=== PATIENT | male | born 1955 | race Caucasian/White ===

== ENCOUNTER 2016-04-05 05:41 | Outpatient (CLI) | payer BC ==
[~2016-04-05] VITALS: Ht 172.7 cm; Wt 79.4 kg
[~2016-04-05 05:41] MED LIST: PANT40TA3 PO
[2016-04-05] MEDS ORDERED: PANT40TA3 PO (14:20)
== END 2016-04-05 14:21 ==
LOC: PREOP 05:41
PROVIDERS: ATTEND Internal Medicine
DX: Z01.818 Encounter for other preprocedural examination (principal); K22.70 Barrett's esophagus without dysplasia

== ENCOUNTER 2016-04-07 07:25 | Day surgery (SDC) | payer BC ==
[~2016-04-07] VITALS: Ht 172.7 cm; Wt 79.4 kg
--- OUTSIDE RECORDS SUMMARY | 2016-04-07 07:29 | XMS REPORT | Continuity of Care Document ---
Author Author [facility] Organization [facility] Address Unknown Phone Unavailable Care Team Providers Care Administrative Aide Name Role Phone SAEID SORIANO MD PCP Insurance Providers Payer Name Policy Number Subscriber Name Relationship [facility] [id number] Lee Gibson 20 Self / Same As Patient Advance Directives Directive Response Recorded Date/Time Advance Directives No 04/05/16 2:17pm Health Care Power of Inside Steward/Stewardess No 04/05/16 2:17pm Organ Donor Yes 04/05/16 2:17pm Resuscitation Status Full Code 04/05/16 2:17pm Problems No problem information available. Medications Current Home Medications Medication Dose Units Route Directions Days/Qty Instructions Start Date Pantoprazole Sodium 40 Mg 40 Mg Oral Daily 04/05/16 Past Home Medications Medication Directions Ordered Status Pantoprazole Sodium 40 Mg Tablet.dr, 40 Mg Oral Daily 02/26/15 Discontinued Social History Social History Problem Response Recorded Date/Time Alcohol Use Occasionally Uses 04/05/2016 2:17pm Recreational Drug Use No 04/05/2016 2:17pm Recent Foreign Travel No 04/05/2016 2:17pm Recent Infectious Disease Exposure No 04/05/2016 2:17pm Smoking Status Never a Smoker 04/05/2016 2:17pm Do you dip or chew tobacco? No 04/30/2015 7:15am Recent Hopitalizations No 04/05/2016 2:17pm Query Response Start Date Stop Date Smoking Status Never a Smoker Hospital Discharge Instructions No hospital discharge instructions. Plan of Care Discharge Date 04/05/16 2:21pm Prescriptions See Medication Section Functional Status No functional status results. Allergies, Adverse Reactions, Alerts No known allergies. Immunizations No immunization records. Vital Signs Acute Vital Signs Vital Response Date/Time Height (Feet) 5 feet 04/05/2016 2:16pm Height (Inches) 8.00 inches 04/05/2016 2:16pm Height (Calculated Centimeters) 172.864864 cm 04/05/2016 2:16pm Weight (Pounds) 175 pounds 04/05/2016 2:16pm Weight (Ounces) 0.0 oz 04/05/2016 2:16pm Weight (Calculated Grams) 64165.67 gm 04/05/2016 2:16pm Weight (Calculated Kilograms) 79.865578 kilograms 04/05/2016 2:16pm Calculated BMI 26.6 04/05/2016 2:16pm Results No known relevant diagnostic tests, laboratory data and/or discharge summary. Procedures No known history of procedures. Encounters Encounter Location Arrival/Admit Date Discharge/Depart Date Attending Provider Registered Clinic [facility] 04/05/16 5:41am KIRSTEN JALLOH MD
--- OUTSIDE RECORDS SUMMARY | 2016-04-07 07:29 | XMS REPORT | Continuity of Care Document ---
Author Author [facility] Organization [facility] Address Unknown Phone Unavailable Care Team Providers Care Ldr Rn Name Role Phone SAEID SORIANO MD PCP Insurance Providers Payer Name Policy Number Subscriber Name Relationship [facility] [id number] Lee Gibson 20 Self / Same As Patient Advance Directives Directive Response Recorded Date/Time Advance Directives No 04/05/16 2:17pm Health Care Power of Education Program Manager No 04/05/16 2:17pm Organ Donor Yes 04/05/16 [...] 8.00 inches 04/05/2016 2:16pm Height (Calculated Centimeters) 172.549119 cm 04/05/2016 2:16pm Weight (Pounds) 175 pounds 04/05/2016 2:16pm Weight (Ounces) 0.0 oz 04/05/2016 2:16pm Weight (Calculated Grams) 91446.67 gm 04/05/2016 2:16pm Weight (Calculated Kilograms) 79.602846 kilograms 04/05/2016 2:16pm Calculated BMI 26.6 04/05/2016 2:16pm Results No known relevant diagnostic tests, laboratory data and/or discharge summary. Procedures No known history of procedures. Encounters Encounter Location Arrival/Admit Date Discharge/Depart Date Attending Provider Registered Clinic [facility] 04/05/16 5:41am KIRSTEN JALLOH MD
[2016-04-07] MEDS ORDERED: 1/2 NS IV SOLUTION 1,000 ML IV STA (07:34)
[2016-04-07] MEDS ORDERED: 1/2 NS IV SOLUTION 1,000 ML IV ONE (07:38)
[2016-04-07] MEDS ORDERED: FLUMAZENIL (ROMAZICON) 0.1 MG/ML 5 ML VIAL INJ PRN (07:45)
[2016-04-07] MEDS ORDERED: NALOXONE 0.4 MG/ML 1 ML (NARCAN) VIAL IVP PRN (07:45)
[2016-04-07 07:49] VITALS: BP 150/90
--- NOTE | 2016-04-07 07:56 | HISTORY AND PHYSICAL ---
DICTATING PHYSICIAN: Dr. Martinez DATE OF ADMISSION: 04/07/2016 Mr. Hernandez is a 61-year-old white male who presented to my office on 03/27 for yearly wellness evaluation. He has known short segment Rodriguez's and last underwent EGD evaluation for dysphasia one year ago. He had LA grade 4 erosive esophagitis with short segment Rodriguez's. No dysplasia was noted. He did have a stricture formation. He has been compliant with PPI therapy and has had no dysphasia or odynophagia. He has noted no melena and has felt well. His weight is up several pounds. Bowel habits have been normal. He accomplished screening colonoscopy in February 2015. He had one small adenoma removed from the hepatic flexure, without evidence for dysplasia and a 5 year screening interval from that time was recommended. PAST MEDICAL HISTORY: Noncontributory, he has no significant health problems. MEDICATIONS: Pantoprazole is on no other prescription medication. SURGICAL HISTORY: He has no significant past surgical history. FAMILY HISTORY: Pertinent for one aunt and one cousin with a history of colon cancer. 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 He has not aware of any family history for esophageal cancer, gastric or pancreatic cancer. PHYSICAL EXAMINATION: Reveals a pleasant articulate white male, in no acute distress. His blood pressure in was 140/82, heart rate was 72 and regular. HEENT EXAMINATION: Unremarkable. Sclera were anicteric. Ear canals clear with normal TMs. Oral cavity reveals a Mallampati class II pharyngeal configuration. NECK: Reveals no JVD, adenopathy or bruits. CHEST: Clear. CV: Reveals a regular rate and rhythm without murmur, S3 or S4. ABDOMEN: Soft, supple without masses, organomegaly or tenderness. EXTREMITIES: Reveal no cyanosis, clubbing, or edema. SKIN: Skin evaluation reveals no suspicious nevi. RECTAL EXAMINATION: Was deferred to the time of the EGD. A chemistry panel, lipid panel and PSA were obtained. PSA was low at 0.57, chemistry studies and lipid parameters were unremarkable, nonfasting sugar was unremarkable at 113. ASSESSMENT: Normal well male examination. Did discuss the importance of regular physical activity. Advised moderation of red meat and processed meats with increased dietary fiber and plants. We will be calling to remind him for yearly wellness evaluation and a flu shot was administered today. He was set-up for EGD for surveillance for Rodriguez's and erosive esophagitis. Continue to recommend lifelong PPI therapy. EGD was scheduled for 04/07/16 Job ID: [id number] Dictated Date: 03/27/2016 19:37:00 Heel Cementer Date: 03/28/2016 10:57:51/raji
--- NOTE | 2016-04-07 08:01 | Pre-Op Note & Conscious Sedat ---
Pre-Operative Progress Note H&P Reviewed The H&P was reviewed, patient examined and no changes noted. Date H&P Reviewed: Apr 07, 2016 Time H&P Reviewed: 08:01 Conscious Sedation Pre-Proced ASA Class: 2 Airway Mallampati Classification: (redding appropriate class) I. II. III, IV Lungs Heart ASA score ASA 1: a normal healthy patient ASA 2: a patient with a mild systemic disease (mid diabetes, controlled hypertension, obesity ASA 3: a patient with a severe systemic disease that limits activity (angina , COPD, prior Myocardial infarction) ASA 4: a patient with an incapacitating disease that is a constant threat to life (CHF, renal failure) ASA 5: a moribund patient not expected to survive 24 hrs. (ruptured aneurysm) ASA 6: a declared brain patient whose organs are being harvested. For emergent operations, add the letter E after the classification Grade 2 Sedation Plan: Analgesia, Amnesia, Plan communicated to team members, Discussed options with patient/fam, Discussed risks with patient/fam Note The patient is an appropriate candidate to undergo the planned procedure, sedation, and anesthesia. The patient immediately re-assessed prior to indication. KIRSTEN JALLOH MD Apr 07, 2016 08:01
[2016-04-07] MEDS: HURRICAINE EXT TUBE (BENZOCAINE) XX PRN ×2 (08:41→08:46)
[2016-04-07] MEDS ORDERED: HURRICAINE EXT TUBE (BENZOCAINE) ONE (08:45)
[2016-04-07] MEDS ORDERED: LIDOCAINE JELLY 2% (XYLOCAINE) 5 ML TUBE ONE (08:45)
[2016-04-07] MEDS ORDERED: fentaNYL INJECTION 100 MCG/2 ML AMP ONE (08:45)
[2016-04-07] MEDS ORDERED: MIDAZOLAM 2 MG/2 ML (VERSED) VIAL ONE ×3 (08:45→08:56)
[2016-04-07] MEDS: fentaNYL INJECTION 100 MCG/2 ML AMP IVP PRN ×2 (08:45→08:53)
[2016-04-07] MEDS: LIDOCAINE JELLY 2% (XYLOCAINE) 5 ML TUBE MM PRN ×2 (08:46→08:56)
[2016-04-07] MEDS: MIDAZOLAM 2 MG/2 ML (VERSED) VIAL IVP PRN ×3 (08:48→08:56)
[2016-04-07 09:35] VITALS: BP 116/78
[2016-04-07 10:00] VITALS: BP 136/96
[2016-04-07 10:30] VITALS: BP 136/96
--- NOTE | 2016-04-09 08:51 | PROCEDURE REPORT ---
PROCEDURE PHYSICIAN: KIRSTEN JALLOH DATE OF PROCEDURE: 04/07/2016 EGD SUMMARY: PRIMARY CARE PHYSICIAN: Dr. Jalloh INDICATION FOR THE PROCEDURE: This is a surveillance EGD due to history of Rodriguez's esophagus in addition to erosive esophagitis. PROCEDURE: The patient was placed in the left lateral decubitus position. The endoscope was inserted into the oral cavity and under direct visualization, the esophagus was intubated. The endoscope was passed down the esophagus, through the stomach, and into the second portion of the duodenum. A careful inspection was made as the endoscope was withdrawn. The patient tolerated the procedure well. FINDINGS: Proximal and midesophagus were unremarkable. The estimated GE junction was proximally placed at 35 cm from the incisal orifice secondary to a small to medium sized hiatal hernia, in addition to an estimated 3 cm of Rodriguez's esophagus. Five circumferential biopsies were obtained and submitted for histopathology. Currently there was only one shallow erosion involving only 10% of the circumference of the esophagus. There was no evidence to suggest malignancy under normal light as well as blue light filtering. Photographs were obtained. The cardia, fundus and antrum of the stomach were normal, as was the pylorus, the pyloric channel, the duodenal bulb, and second portion of the duodenum. No evidence for blood was noted in the upper GI tract. ASSESSMENT: The patient LA grade D esophagitis previously has been reduced to LA grade A with short segment Rodriguez's. Surveillance biopsies were obtained and submitted for histopathology. There is a small to moderate size hiatal hernia again noted. As long as there are no surprises on histopathology reports, the patient will hopefully remain at low risk and as long as this is the case, will likely advocate a 2 year screening interval, provided significant dysplasia is not identified. He has rare alcohol intake and is a lifelong nonsmoker. There is also no family history for esophageal cancer that he is aware of or any other GI tract malignancy. Job ID: [id number] Dictated Date: 04/07/2016 13:22:31 Physical Education Specialist Date: 04/09/2016 08:45:34 / negin MCCABE
== END 2016-04-07 10:30 | disposition home or self-care (01) ==
LOC: ENDO 07:25
PROVIDERS: ATTEND Internal Medicine
DX: K22.70 Barrett's esophagus without dysplasia (principal); K44.9 Diaphragmatic hernia without obstruction or gangrene
CPT/HCPCS: 88305

== ENCOUNTER 2019-08-05 05:36 | Outpatient (RCR) | payer BC ==
[~2019-08-05] VITALS: Ht 172 cm; Wt 86.3 kg
[~2019-08-05 05:36] MED LIST changes: +ROSU20TA32 PO
== END 2019-08-05 15:09 | disposition home or self-care (01) ==
LOC: PREOP 05:36
PROVIDERS: ATTEND Specialist
DX: Z01.818 Encounter for other preprocedural examination (principal); Z11.59 Encounter for screening for other viral diseases
CPT/HCPCS: 87635

== ENCOUNTER 2019-08-08 05:56 | Day surgery (SDC) | payer BC ==
[~2019-08-08] VITALS: Ht 172 cm; Wt 86.3 kg
[2019-08-08 06:12] VITALS: BP 162/90
[2019-08-08] MEDS ORDERED: MOXIFLOXACIN OPHTH SOLN 5 MG/ML 0.3 ML SYRINGE OP ONE (06:15)
[2019-08-08] MEDS ORDERED: TIMOLOL MALEATE 0.5% 5 ML (TIMOPTIC) BTL OU PRN (06:15)
[2019-08-08] MEDS ORDERED: POVIDONE (BETADINE) OPHTH SOLN 5% 30 ML OP ONE (06:15)
[2019-08-08] MEDS ORDERED: LIDOCAINE PF 1% 2 ML VIAL IR PRN (06:15)
[2019-08-08] MEDS ORDERED: TETRACAINE 0.5% OPHTH SOLN 4 ML BTL (SINGLE DOSE ONLY) OP ONE (06:30)
[2019-08-08] MEDS: CYCLOPENTOLATE 1% (CYCLOGYL) 2 ML DROPS OP SCH ×3 (06:33→06:47)
[2019-08-08] MEDS: PHENYLEPHRINE 10% OPHTH (NEO-SYN) 5 ML BTL OU SCH ×3 (06:34→06:47)
[2019-08-08] MEDS ORDERED: MIDAZOLAM 2 MG/2 ML (VERSED) VIAL ONE (06:44)
--- NOTE | 2019-08-08 06:55 | Ophthalmologist Pre-Op Note ---
Pre-Operative Progress Note H&P Reviewed The H&P was reviewed, patient examined and no changes noted. Date H&P Reviewed: Aug 08, 2019 Time H&P Reviewed: 06:55 Pre-Op Dx Cataract, Right Eye HALLE REGALADO MD Aug 08, 2019 06:55
--- NOTE | 2019-08-08 07:23 | Ophthalmology Operative Report ---
Cataract removal/placement IOL PREOPERATIVE DIAGNOSIS: Cataract Right Eye POSTOPERATIVE DIAGNOSIS: Cataract Right Eye PROCEDURE: Cataract removal and placement of posterior chamber implant, right eye SURGEON: Jose Regalado ANESTHESIA: Topical with sedation COMPLICATIONS: None ESTIMATED BLOOD LOSS: Minimal DESCRIPTION OF PROCEDURE: After proper informed consent was obtained, the patient, a 64 male, was taken to the Operating Room and the right eye was anesthetized with tetracaine. The right eye was then prepped and draped in the usual manner. A wire lid speculum was placed. A paracentesis was made at the left hand position. Preservative free lidocaine was injected into the anterior chamber followed by viscoelastic. A clear corneal incision was made in the temporal position. A capsulorrhexis was preformed and the central nuclear and cortical material were removed. The posterior capsule was polished and Phani [id number] 15.5 IOL was placed into the capsular bag. The residual viscoelastic was aspirated and balanced saline solution was injected into the anterior chamber. Moxifloxacin was injected into the anterior chamber. The wound was checked and found to be water tight. The patient tolerated the procedure well without complications. JOSE REGALADO MD Aug 08, 2019 07:23
[2019-08-08] MEDS ORDERED: acetaZOLAMIDE ER 500 MG CAP (DIAMOX SEQUELS) PO ONE (07:30)
[2019-08-08 07:35] VITALS: BP 133/94
== END 2019-08-08 07:35 | disposition home or self-care (01) ==
LOC: SDC 05:56
PROVIDERS: ATTEND Specialist
DX: H25.11 Age-related nuclear cataract, right eye (principal); K22.70 Barrett's esophagus without dysplasia; Z85.828 Personal history of other malignant neoplasm of skin; Z79.899 Other long term (current) drug therapy
CPT/HCPCS: 66984; V2632

== ENCOUNTER 2019-08-12 05:29 | Outpatient (CLI) | payer BC | END 2019-08-12 15:40 | disposition home or self-care (01) | LOC: PREOP 05:29 | PROVIDERS: ATTEND Specialist | DX: Z01.818 Encounter for other preprocedural examination (principal); Z11.59 Encounter for screening for other viral diseases | CPT/HCPCS: 87635 ==

== ENCOUNTER 2019-08-15 06:00 | Day surgery (SDC) | payer BC ==
--- NOTE | 2019-08-08 11:35 | Anesthesia-General Post-Op ---
MAC Patient Condition Mental Status/LOC: Same as Preop Cardiovascular: Satisfactory Nausea/Vomiting: Absent Respiratory: Satisfactory Pain: Controlled Complications: Absent Post Op Complications Complications None Follow Up Care/Instructions Patient Instructions None needed. Anesthesiology Discharge Order Discharge Order Patient is doing well, no complaints, stable vital signs, no apparent adverse anesthesia problems. No complications reported per nursing. LEXY MEDELLIN DELIVERY MOTORCYCLE DRIVER Aug 08, 2019 11:35
[~2019-08-15] VITALS: Ht 177.8 cm; Wt 86.3 kg
[2019-08-15 06:05] VITALS: BP 172/95
[2019-08-15] MEDS ORDERED: POVIDONE (BETADINE) OPHTH SOLN 5% 30 ML OP ONE (06:15)
[2019-08-15] MEDS ORDERED: TIMOLOL MALEATE 0.5% 5 ML (TIMOPTIC) BTL OU PRN (06:15)
[2019-08-15] MEDS ORDERED: MOXIFLOXACIN OPHTH SOLN 5 MG/ML 0.3 ML SYRINGE OP ONE (06:15)
[2019-08-15] MEDS ORDERED: LIDOCAINE PF 1% 2 ML VIAL IR PRN (06:15)
[2019-08-15] MEDS: TETRACAINE 0.5% OPHTH SOLN 4 ML BTL (SINGLE DOSE ONLY) OU PRN ×4 (06:16→06:36)
--- OUTSIDE RECORDS SUMMARY | 2019-08-15 06:22 | XMS REPORT ---
Author Author [facility] locator [facility] Address [address] [address] Care Team Providers Care Mail Carrier Technician Name Role Phone SAEID SORIANO Unavailable KIRSTEN JALLOH Unavailable KIRSTEN JALLOH MD Unavailable Unavailable IZAIAH GUSMAN Unavailable Unavailable IZAIAH GUSMAN Unavailable Unavailable IZAIAH GUSMAN Unavailable Unavailable HALLE REGALADO MD Unavailable Unavailable Unavailable Unavailable Unavailable Unavailable Unavailable Unavailable Allergies Normalized Allergy Reported Date of Reaction(s) Care Provider Facility Allergy Type classification allergen Allergy Onset DA (5 Unclassified No Known Drug 04-30-2015 - no information KIRSTEN JALLOH , Not Available sources.) Allergies (49586) Medications No Information Problems Active Problems Problem Normalized Date Last Normalized Normalized Provider Fa cility Classification Problem(s) Recorded Problem Problem Sta tus Duration Esophageal Rodriguez's Chronic Active KIRSTEN JALLOH , Not Av ailable disorders (3 esophagus MD (55914) sources.) without dysplasia Past or Other Problems Problem Normalized Date Last Normalized Normalized Provider Fa cility Classification Problem(s) Recorded Problem Problem Sta tus Duration Abdominal Diaphragmatic Episodic Completed KIRSTEN JALLOH , Not Available hernia (3 hernia without MD (15110) sources.) obstruction or gangrene Procedures The data below is from unstructured sourcesNo known history of procedures.No known history of procedures.No known history of procedures. Immunizations The data below is from unstructured sourcesNo immunization records.No immunization records.No immunization records.No immunization records.No immunization records.No immunization records.No immunization records. Results The data below is from unstructured sourcesNo known relevant diagnostic tests, laboratory data and/or discharge summary.No known relevant diagnostic tests, laboratory data and/or discharge summary.No known relevant diagnostic tests, laboratory data and/or discharge summary.No known relevant diagnostic tests, laboratory data and/or discharge summary.No known rel evant diagnostic tests, laboratory data and/or discharge summary.No known releva nt diagnostic tests, laboratory data and/or discharge summary.No known relevant diagnostic tests, laboratory data and/or discharge summary. Vital Signs The data below is from unstructured sources Vital Response Date/Time Height (Feet) 5 feet 2:16pm Height (Inches) 8.00 inches 04/05/2016 2:16pm Height (Calculated Centimeters) 172. 048033 cm 04/05/2016 2:16pm Weight (Pounds) 175 pounds 04/05/2016 2:16pm Weight (Ounces) 0.0 oz 0 04/05/2016 2:16pm Weight (Calculated Grams) 03128.67 gm 04/05/2016 2:16pm Weight (Calculated Kilograms) 79.378 666 kilograms 04/05/2016 2:16pm Calculated BMI 26.6 03/22 2:16pm Vital Response Date/Time Temperature (Fahrenheit) 97.5 degree s F (97.6 - 99.5) 04/07/2016 10:30am Temperature (Calculated Celsius) 36. 02463 degrees C (36.4 - 37.5) 04/07/2016 10:30am Temperature Source Tympanic 04/07/2016 10:30am Pulse Rate (adult) 76 bpm (60 - 90) 04/07/2016 10:30am Respiratory Rate 20 bpm (12 - 24) 04/07/2016 10:30am O2 Sat by Pulse Oximetry 95 % (88 - 100) 04/07/2016 10:30am Blood Pressure 136/96 mm Hg 04/07/2016 10:30am Blood Pressure Mean 110 mm Hg 04/07/2016 7:49am Pain Numeric Pain Scale 0-No Pain 04/07/2016 10:30am Pain Intensity 0 2016 10:00am Height (Feet) 5 feet 7:51am Height (Inches) 8.00 inches 04/07/2016 7:51am Height (Calculated Centimeters) 172. 728936 cm 04/07/2016 7:51am Weight (Pounds) 175 pounds 04/07/2016 7:51am Weight (Ounces) 0.0 oz 0 04/07/2016 7:51am Weight (Calculated Grams) 36006.67 gm 04/07/2016 7:51am Weight (Calculated Kilograms) 79.378 666 kilograms 04/07/2016 7:51am Calculated BMI 26.6 03/22 7:51am Vital Response Date/Time Temperature (Fahrenheit) 97.0 degree s F (97.6 - 99.5) 04/30/2015 10:00am Temperature (Calculated Celsius) 36. 44769 degrees C (36.4 - 37.5) 04/30/2015 10:00am Temperature Source Tympanic 04/30/2015 10:00am Pulse Rate (adult) 74 bpm (60 - 90) 04/30/2015 10:00am Respiratory Rate 18 bpm (12 - 24) 04/30/2015 10:00am O2 Sat by Pulse Oximetry 98 % (88 - 100) 04/30/2015 10:00am Blood Pressure 146/98 mm Hg 04/30/2015 10:00am Pain Pain Intensity 0 2015 10:00am Height (Feet) 5 feet 12/2015 7:15am Height (Inches) 8.00 inches 04/30/2015 7:15am Height (Calculated Centimeters) 172. 558749 cm 04/30/2015 7:15am Weight (Pounds) 175 pounds 04/30/2015 7:15am Weight (Calculated Grams) 98791.666 gm 04/30/2015 7:15am Weight (Calculated Kilograms) 79.378 666 kilograms 04/30/2015 7:15am Calculated BMI 26.61 12/2015 7:15am Vital Response Date/Time Height (Feet) 5 feet 11/2015 9:53am Height (Inches) 8.00 inches 04/29/2015 9:53am Height (Calculated Centimeters) 172. 413690 cm 04/29/2015 9:53am Weight (Pounds) 175 pounds 04/29/2015 9:53am Weight (Calculated Grams) 80846.666 gm 04/29/2015 9:53am Weight (Calculated Kilograms) 79.378 666 kilograms 04/29/2015 9:53am Calculated BMI 26.61 11/2015 9:53am Vital Response Date/Time Height (Feet) 5 feet 11/2015 9:53am Height (Inches) 8.00 inches 04/29/2015 9:53am Height (Calculated Centimeters) 172. 647226 cm 04/29/2015 9:53am Weight (Pounds) 175 pounds 04/29/2015 9:53am Weight (Calculated Grams) 81458.666 gm 04/29/2015 9:53am Weight (Calculated Kilograms) 79.378 666 kilograms 04/29/2015 9:53am Calculated BMI 26.61 11/2015 9:53am Interventions No Information Plan of Treatment The data below is from unstructured sources Discharge Date 04/05/16 2:21pm Prescriptions See Medication Section Discharge Date 04/07/16 10:30am Instructions/Education Provided EGD- ESOPHAGOGASTRODUODENOSCOPY Prescriptions See Medication Section Discharge Date 04/30/15 10:00am Instructions/Education Provided EGD- ESOPHAGOGASTRODUODENOSCOPY Prescriptions See Medication Section Discharge Date 04/29/15 9:58am Prescriptions See Medication Section Discharge Date 04/29/15 9:58am Prescriptions See Medication Section Goals No Information Social History No Information Functional Status The data below is from unstructured sourcesNo functional status results.No functional status results.No functional status results.No functional status results.No functional status results.No functional status results.No functional status results. Mental Status No Information Encounters Encounter Normalized Encounter Encounter Diagnosis Care Provi michaela Organization Date Type 08-05-2019 Patient encounter no information HALLE REGALADO MD (no [facility] - procedure phone) [facility] 08-05-2019 (no phone) 08-01-2019 Patient encounter no information HALLE REGALADO MD (no [facility] procedure phone) [facility] (no phone) 04-07-2019 Patient encounter no information IZAIAH GUSMAN (no [facility] ne) [facility] - procedure of [facility] (no 04-07-2019 phone) 04-07-2016 Patient encounter no information no name no or ganization name - procedure 04-07-2016 Medical Equipment No Information Payers Normalized Payer Value [facility] no information Advance Directives Directive Response Recor ded Date/Time Advance Directives No 2:17pm Health Care Power of Motor Rebuilder No 04/05/16 2:17pm Organ Donor Yes 04/05/16 2:17pm Resuscitation Status Full Code 04/05/16 2:17pm Directive Response Recor ded Date/Time Advance Directives No 7:48am Health Care Power of Motor Rebuilder No 04/07/16 7:48am Organ Donor Yes 04/07/16 7:48am Resuscitation Status Full Code 04/07/16 7:48am Directive Response Recor ded Date/Time Advance Directives No 7:15am Health Care Power of Motor Rebuilder No 04/30/15 7:15am Organ Donor Yes 04/30/15 7:15am Resuscitation Status Full Code 04/30/15 7:15am Directive Response Recor ded Date/Time Advance Directives No 9:53am Health Care Power of Motor Rebuilder No 04/29/15 9:53am Organ Donor Yes 04/29/15 9:53am Resuscitation Status Full Code 04/29/15 9:53am Discharge Instructions No hospital discharge instructions.No hospital discharge instructions.No hospital discharge instructions.No hospital discharge instructions. Additional Source Comments This clinical document has been generated using [employer] software that has been certified by the Office of the National Coordinator for Health Information Technology (ONC 15.99.04.3023.Diam.31.00.0.462279) and the National Committee for Guest Relations Officer (NCQA, as an eMeasure certified technology). FOR RECORDS PERTAINING TO PATIENTS WHO ARE OR HAVE BEEN ENROLLED IN A CHEMICAL D EPENDENCY/SUBSTANCE ABUSE PROGRAM, SOME INFORMATION MAY BE OMITTED. This clinica l summary was aggregated from multiple sources. Caution should be exercised in using it in the provision of clinical care. This summary normalizes information from multiple sources, and as a consequence, information in this document may ma terially change the coding, format and clinical context of patient data. In chase tion, data may be omitted in some cases. CLINICAL DECISIONS SHOULD BE BASED ON T HE PRIMARY CLINICAL RECORDS. [employer] provides no warranty or guara ntee of the accuracy or completeness of information in this document.The followi ng information is based on time limited clinical information
--- OUTSIDE RECORDS SUMMARY | 2019-08-15 06:22 | XMS REPORT | Continuity of Care Document ---
Author Organization Unknown Address Unknown Phone Unavailable Allergies Active Description Code Type Severity Reaction Onset Reported/Identified Relationship to Patient Clinical Status Yes NO KNOWN DRUG ALLERGIES UNKNOWN UNKNOWN Yes No Known Drug Allergies [id number] Drug Allergy Unknown N/A 08/01/2019 Medications There is no data. Problems Date Dx Coded Attending Type Code Diagnosis Diagnosed By 01/19/1508 FABRICIO JANE, HALLE Mendez Ot Z01.818 ENCOUNTER FOR OTHER PREPROCEDURAL EXAMIN 01/19/1508 HALLE REGALADO MD Ot Z11.59 ENCOUNTER FOR SCREENING FOR OTHER VIRAL 02/26/2015 SHUBHAM JANE, KIRSTEN Isaacs Ot K22. 2 02/26/2015 SHUBHAM JANE, KIRSTEN Isaacs Ot K22. 70 02/26/2015 SHUBHAM JANE, KIRSTEN Isaacs Ot K29. 80 02/26/2015 SHUBHAM JANE, KIRSTEN Isaacs Ot K57. 30 02/26/2015 SHUBHAM JANE, KIRSTEN Isaacs Ot Z12. 11 02/26/2015 SHUBHAM JANE, KIRSTEN Isaacs Ot Z80. 0 04/30/2015 SHUBHAM JANE, KIRSTEN Isaacs Ot K22. 70 04/30/2015 SHUBHAM JANE, KIRSTEN Isaacs Ot K44. 9 05/03/2015 SHUBHAM JANE, KIRSTEN Isaacs Ot K22. 70 05/03/2015 SHUBHAM JANE, KIRSTEN Isaacs Ot K44. 9 05/05/2015 SHUBHAM JANE, KIRSTEN Isaacs Ot K22. 70 05/05/2015 SHUBHAM JANE, KIRSTEN Isaacs Ot Z01.818 05/06/2015 SHUBHAM JANE, KIRSTEN Isaacs Ot K22. 70 05/06/2015 SHUBHAM JANE, KIRSTEN Isaacs Ot K44. 9 04/07/2016 SHUBHAM JANE, KIRSTEN Isaacs Ot K22. 70 MENDEZ'S ESOPHAGUS WITHOUT DYSPLASIA 04/07/2016 SHUBHAM JANE, KIRSTEN Isaacs Ot K44. 9 DIAPHRAGMATIC HERNIA WITHOUT OBSTRUCTION 04/10/2016 SHUBHAM JANE, KIRSTEN Isaacs Ot K22. 70 MENDEZ'S ESOPHAGUS WITHOUT DYSPLASIA 04/10/2016 KIRSTEN JALLOH MD Ot K44. 9 DIAPHRAGMATIC HERNIA WITHOUT OBSTRUCTION 04/15/2016 KIRSTEN JALLOH MD Ot K22. 70 MENDEZ'S ESOPHAGUS WITHOUT DYSPLASIA 04/15/2016 KIRSTEN JALLOH MD Ot K44. 9 DIAPHRAGMATIC HERNIA WITHOUT OBSTRUCTION 08/08/2019 HALLE REGALADO MD Ot H25.11 AGE-RELATED NUCLEAR CATARACT, RIGHT EYE 08/08/2019 HALLE REGALADO MD Ot K22.70 MENDEZ'S ESOPHAGUS WITHOUT DYSPLASIA 08/08/2019 HALLE REGALADO MD Ot Z79.899 OTHER BINDERY CHIEF (CURRENT) DRUG THERAPY 08/08/2019 HALLE REGALADO MD Ot Z85.828 PERSONAL HISTORY OF OTHER MALIGNANT NEOP Procedures There is no data. Results Test Result Range Coronavirus SARS-CoV-2 SO 2018 0 07:55 Coronavirus Ab [Units/volume] in Serum Negative Negative Coronavirus SARS-CoV-2 SO 2018 0 08:04 Coronavirus Ab [Units/volume] in Serum Negative Negative Encounters ACCT No. Visit Date/Time Discharge Status Pt. Type Provider Facility Loc./Unit Complaint [id number] 04/07/2019 08:49:00 04/07/2019 23:59 :00 DIS Outpatient Roslyn Chaitanya [id number] 08/12/2019 05:29:00 020 15:40:00 DIS Outpatient HALLE REGALADO MD [facility] PREOP [id number] 08/08/2019 05:56:00 020 07:35:00 DIS Outpatient HALLE REGALADO MD [facility] SDC CATARACT RIGHT EYE [id number] 08/05/2019 05:36:00 020 15:09:00 DIS Outpatient HALLE REGALADO MD [facility] PREOP CATARACT RIGHT EYE [id number] 04/07/2016 07:25:00 017 10:30:00 DIS Outpatient KIRSTEN JALLOH MD [facility] ENDO FOLLOW UP BARRETTS [id number] 04/05/2016 05:41:00 017 14:21:00 DIS Outpatient KIRSTEN JALLOH MD [facility] PREOP FOLLOW UP [place]RETTS [id number] 04/30/2015 07:10:00 016 10:00:00 DIS Outpatient KIRSTEN JALLOH MD [facility] [id number] 04/29/2015 05:35:00 016 09:58:00 DIS Outpatient KIRSTEN JALLOH MD [facility] PREOP [id number] 02/26/2015 07:24:00 016 11:15:00 DIS Outpatient KIRSTEN JALLOH MD [facility] [id number] 02/24/2015 05:37:00 016 23:59:59 CLS Outpatient KIRSTEN JALLOH MD [facility] PREOP [id number] 08/15/2019 07:30:00 P HALLE Vizcarra MD [facility] CATARACT LEFT EYE
[2019-08-15] MEDS: PHENYLEPHRINE 10% OPHTH (NEO-SYN) 5 ML BTL OU SCH ×3 (06:25→06:36)
[2019-08-15] MEDS: CYCLOPENTOLATE 1% (CYCLOGYL) 2 ML DROPS OP SCH ×3 (06:25→06:36)
[2019-08-15] MEDS ORDERED: MIDAZOLAM 2 MG/2 ML (VERSED) VIAL ONE (06:40)
--- NOTE | 2019-08-15 06:59 | Ophthalmologist Pre-Op Note ---
Pre-Operative Progress Note H&P Reviewed The H&P was reviewed, patient examined and no changes noted. Date H&P Reviewed: Aug 15, 2019 Time H&P Reviewed: 06:48 Pre-Op Dx Cataract, Left Eye HALLE REGALADO MD Aug 15, 2019 06:59
--- NOTE | 2019-08-15 07:17 | Ophthalmology Operative Report ---
Cataract removal/placement IOL PREOPERATIVE DIAGNOSIS: Cataract Left Eye POSTOPERATIVE DIAGNOSIS: Cataract Left Eye PROCEDURE: Cataract removal and placement of posterior chamber implant, left eye SURGEON: Jose Regalado ANESTHESIA: Topical with sedation COMPLICATIONS: None ESTIMATED BLOOD LOSS: Minimal DESCRIPTION OF PROCEDURE: After proper informed consent was obtained, the patient, a 64 male, was taken to the Operating Room and the left eye was anesthetized with tetracaine. The left eye was then prepped and draped in the usual manner. A wire lid speculum was placed. A paracentesis was made at the left hand position. Preservative free lidocaine was injected into the anterior chamber followed by viscoelastic. A clear corneal incision was made in the temporal position. A capsulorrhexis was preformed and the central nuclear and cortical material were removed. The posterior capsule was polished and an Phani 16.5 [id number] was placed into the capsular bag. The residual viscoelastic was aspirated and balanced saline solution was injected into the anterior chamber. Moxifloxacin was injected into the anterior chamber. The wound was checked and found to be water tight. The patient tolerated the procedure well without complications. JOSE REGALADO MD Aug 15, 2019 07:17
[2019-08-15 07:20] VITALS: BP 149/62
[2019-08-15] MEDS ORDERED: acetaZOLAMIDE ER 500 MG CAP (DIAMOX SEQUELS) PO ONE (07:30)
--- NOTE | 2019-08-15 10:03 | Anesthesia-General Post-Op ---
MAC Patient Condition Mental Status/LOC: Same as Preop Cardiovascular: Satisfactory Nausea/Vomiting: Absent Respiratory: Satisfactory Pain: Controlled Complications: Absent Post Op Complications Complications None Follow Up Care/Instructions Patient Instructions None needed. Anesthesiology Discharge Order Discharge Order Patient is doing well, no complaints, stable vital signs, no apparent adverse anesthesia problems. No complications reported per nursing. MICHELLE VALDEZ CRNA Aug 15, 2019 10:03
== END 2019-08-15 07:20 | disposition home or self-care (01) ==
LOC: SDC 06:00
PROVIDERS: ATTEND Specialist
DX: H25.12 Age-related nuclear cataract, left eye (principal); K22.70 Barrett's esophagus without dysplasia; Z79.899 Other long term (current) drug therapy; Z85.828 Personal history of other malignant neoplasm of skin
CPT/HCPCS: 66984; V2632

== ENCOUNTER 2020-05-05 05:27 | Outpatient (RCR) | payer BC ==
[~2020-05-05] VITALS: Ht 172.7 cm; Wt 86.0 kg
[~2020-05-05 05:27] MED LIST changes: -PANT40TA3 PO; +PANT40TA52 PO
== END 2020-05-05 09:22 | disposition home or self-care (01) ==
LOC: PREOP 05:27
PROVIDERS: ATTEND Internal Medicine
DX: Z01.812 Encounter for preprocedural laboratory examination (principal); Z12.11 Encounter for screening for malignant neoplasm of colon; Z20.822 Contact with and (suspected) exposure to COVID-19
CPT/HCPCS: 87635

== ENCOUNTER 2020-05-07 09:01 | Day surgery (SDC) | payer BC ==
--- NOTE | 2020-04-29 17:02 | HISTORY AND PHYSICAL ---
DATE OF SERVICE: PANENDOSCOPY HISTORY AND PHYSICAL HISTORY: The patient is a 65-year-old white male seen for regular followup, who has a past history of Rodriguez's esophagus, short segment. He is due for surveillance EGD. He has his last EGD 3 years ago. He is little over 5 years out from his last colonoscopy and is deemed to be of higher than average risk as there is family history of colon cancer. He has a history of hyperlipidemia, on statin therapy and for reflux, takes Protonix 40 mg daily. Reports that he has not had any heartburn or dysphagia. He has noted no melena or bright red blood per rectum and has not feeling well. He has had no difficulty tolerating rosuvastatin 20 mg daily, was here for a yearly wellness evaluation. He has not been as active over the winter time, but has gotten back to the gym and is now exercising 5 or 6 times a week with aerobics and strength training. He has no past smoking history with only occasional small volume social alcohol intake. PHYSICAL EXAMINATION: GENERAL: Reveals a white male, appeared to be in no acute distress. VITAL SIGNS: Blood pressure 130/80. Weight stable at 192.6 pounds. CHEST: Clear. CARDIOVASCULAR: Regular rate and rhythm without murmur, S3 or S4. ENT: Ear canals clear with normal TMs. ABDOMEN: Soft, supple without mass, organomegaly or tenderness. EXTREMITIES: Reveal no cyanosis, clubbing or edema. SKIN: Evaluation revealed no suspicious nevi. RECTAL: Deferred to the time of colonoscopy. LABORATORY DATA: Blood tests were reviewed with the patient. PSA remains low at 0.57, on rosuvastatin, cholesterol was significantly lower at 152 with an HDL of 40, triglyceride level of 83 and LDL of 95. Chemistry panel was normal. Nonfasting sugar of 106. TSH of 1.9. ASSESSMENT AND PLAN: 1. Stable wellness evaluation, improved lipid parameters due to statin therapy. Continue. 2. Short segment Rodriguez's. The patient set up for surveillance EGD. 3. Family history of colon cancer. The patient set up for screening colonoscopy to follow surveillance EGD. We will have the patient follow up in 6 months. Job ID: [id number] DocumentID: [id number] Dictated Date: 04/29/2020 16:33:21 Sanitation Technician Date: 04/29/2020 17:02:12 Dictated By: KIRSTEN JALLOH MD
[~2020-05-07] VITALS: Ht 172.7 cm; Wt 86.0 kg
[2020-05-07] VITALS (11 sets, daily range): BP systolic 122–170; BP diastolic 72–91
[2020-05-07] MEDS ORDERED: D5 LR IV SOLUTION 1,000 ML IV STA (09:02)
[2020-05-07] MEDS ORDERED: MIDAZOLAM 5 MG/5 ML (VERSED) VIAL IV ONE (09:15)
[2020-05-07] MEDS ORDERED: HURRICAINE EXT TUBE (BENZOCAINE) XX PRN (09:15)
[2020-05-07] MEDS ORDERED: fentaNYL INJ 100 MCG/2 ML AMP IVP ONE (09:15)
[2020-05-07] MEDS ORDERED: LIDOCAINE JELLY 2% 6 ML SYRINGE MM PRN (09:15)
[2020-05-07] MEDS ORDERED: LIDOCAINE JELLY 2% 6 ML SYRINGE ONE (10:06)
[2020-05-07] MEDS ORDERED: fentaNYL INJ 100 MCG/2 ML AMP ONE ×2 (10:07)
[2020-05-07] MEDS ORDERED: HURRICAINE EXT TUBE (BENZOCAINE) ONE (10:07)
[2020-05-07] MEDS ORDERED: MIDAZOLAM 5 MG/5 ML (VERSED) VIAL ONE ×2 (10:07)
--- NOTE | 2020-05-07 11:10 | Pre-Op Note & Conscious Sedat ---
Pre-Operative Progress Note H&P Reviewed The H&P was reviewed, patient examined and no changes noted. Date H&P Reviewed: May 07, 2020 Time H&P Reviewed: 10:00 Conscious Sedation Pre-Proced ASA Score 2 For ASA 3 and 4: Consider anesthesia and medical clearance. Also, for patients with a history of failed moderate sedation consider anesthesia. Airway Lungs Heart ASA score ASA 1: a normal healthy patient ASA 2: a patient with a mild systemic disease (mid diabetes, controlled hypertension, obesity ASA 3: a patient with a severe systemic disease that limits activity (angina, COPD, prior Myocardial infarction) ASA 4: a patient with an incapacitating disease that is a constant threat to life (CHF, renal failure) ASA 5: a moribund patient not expected to survive 24 hrs. (ruptured aneurysm) ASA 6: a declared brain- patient whose organs are being harvested. For emergent operations, add the letter E after the classification Mallampati Classification Grade 2 Sedation Plan Analgesia, Amnesia, Plan communicated to team members, Discussed options with patient/fam, Discussed risks with patient/fam The patient is an appropriate candidate to undergo the planned procedure, sedation, and anesthesia. The patient immediately re-assessed prior to indication. KIRSTEN JALLOH MD May 07, 2020 11:10
--- NOTE | 2020-05-07 18:46 | OPERATIVE REPORT ---
DATE OF SERVICE: PANENDOSCOPY SUMMARY PROCEDURES: Colonoscopy was performed for screening purposes and EGD was performed for surveillance of short segment Rodriguez's. DESCRIPTION OF PROCEDURE: The patient was placed in the left lateral decubitus position. Prior to undergoing colonoscopy, digital rectal evaluation was performed. Anal sphincter tone was normal and the perianal reflexes intact. Prostate is normal in size, anodular, nontender to digital inspection. No abnormalities were noted on digital inspection of anal canal or distal rectal vault. The colonoscope was then inserted into the rectum and under direct visualization advanced to cecum. The cecum was identified by identification of the ileocecal valve and cecal strap. Photographic documentation was obtained. A careful inspection was made as the colonoscope was withdrawn. The patient tolerated the procedure well. FINDINGS: There was no evidence for internal or external hemorrhoids and the rectum was unremarkable. Several small to medium size sigmoid diverticulum were present without evidence for diverticulitis. No other sigmoid colonic abnormalities were appreciated. The descending colon, splenic flexure, transverse colon, hepatic flexure, ascending colon and cecum were unremarkable. Quality of prep was good. ASSESSMENT: Mild diverticular disease confined to the sigmoid colon was present with otherwise normal colonoscopy to the cecum. The prostate was unremarkable to digital inspection as well. The upper endoscope was inserted into the oral cavity and under direct visualization, esophagus was intubated. The endoscope was passed down the esophagus through the stomach and second portion of the duodenum. Careful inspection was made as the endoscope was withdrawn. The patient tolerated the procedure well. FINDINGS: The posterior pharynx, true and false vocal folds, arytenoids aperture and epiglottis were unremarkable. The proximal and mid esophagus were unremarkable. Findings compatible with 1-2 cm of Rodriguez's esophagus with a small sliding hiatal hernia were noted. No evidence for ulceration or nodularity was noted. No evidence for stricture formation or erosive esophagitis was noted. Four quadrant biopsies were obtained and submitted for histopathology. The cardia was unremarkable. There was one 4 mm fundal appearing polyp noted along the greater curvature. No evidence for gastritis was noted. There is some mild erythema in the duodenal bulb without evidence for erosion or ulceration. The second portion of duodenum was unremarkable with typical villous appearing architecture to gross inspection. ASSESSMENT: EGD findings were unchanged from previous studies consistent with short segment Rodriguez's without gross evidence to suggest malignancy. There is a small hiatal hernia present without evidence for erosive esophagitis. One small 3 to 4 mm fundal appearing polyp was noted along the greater curvature of the fundus of the stomach. Four quadrant biopsies were obtained and sent for histopathology with recommendations for future surveillance, colonoscopy. Due to family history will recommended surveillance colonoscopy in 5 years. May delay EGD until that point provided there is no evidence for dysplasia on today's histopathology evaluation. Biopsies obtained from his presumed short segment Rodriguez's. Job ID: [id number] DocumentID: [id number] Dictated Date: 05/07/2020 12:14:44 Developing Machine Operator Date: 05/07/2020 18:45:51 Dictated By: KIRSTEN JALLOH MD [facility]
== END 2020-05-07 11:50 | disposition home or self-care (01) ==
LOC: ENDO 09:01
PROVIDERS: ATTEND Internal Medicine
DX: Z12.11 Encounter for screening for malignant neoplasm of colon (principal); K57.30 Diverticulosis of large intestine without perforation or abscess without bleeding; K44.9 Diaphragmatic hernia without obstruction or gangrene; K22.70 Barrett's esophagus without dysplasia; K31.7 Polyp of stomach and duodenum; E78.5 Hyperlipidemia, unspecified; K21.9 Gastro-esophageal reflux disease without esophagitis; Z79.899 Other long term (current) drug therapy; Z80.0 Family history of malignant neoplasm of digestive organs
CPT/HCPCS: 88305